=== PATIENT | male | born 1960 | race Caucasian/White ===

== ENCOUNTER → 2023-10-21 07:31 | Outpatient (REF) | payer MEDICARE, OTHER, SELFPAY | LOC: SDSPAT 07:31 | PROVIDERS: ATTENDING PHYSICIAN Surgery; FAMILY PHYSICIAN Nurse Practitioner | DX: K40.90 Unilateral inguinal hernia, without obstruction or gangrene, not specified as recurrent (principal) | CPT/HCPCS: 93005 ==

== ENCOUNTER 2023-10-28 06:28 | Day surgery (SDC) | payer MEDICARE, OTHER, SELFPAY ==
[2023-10-21 14:09] VITALS: BMI 25.6
[2023-10-28] VITALS (10 sets, daily range): BP systolic 112–131; BP diastolic 63–77; BMI 25.6
[2023-10-28] MEDS: TYLENOL 1000 MG PO (11:17)
[2023-10-28] MEDS: NORMOSOL-R 1000 IV (11:18)
--- NOTE | 2023-10-28 13:29 | W.SUR.PREOP ---
Pre-Operative Surgical Note
-
I have examined this patient prior to the performance of the scheduled procedure.
The patient's condition is unchanged from the time of the current History and
Physical and the patient is able to undergo the scheduled procedure.
--- NOTE | 2023-10-28 13:29 | W.IMMPOSTOP ---
Surgical Immed Post Op Note
-
Primary Surgeon: Rivera Fam MD
Assisting Surgeon: None
Pre-op Diagnosis: Incarcerated right scrotal inguinal hernia
Post-op Diagnosis: Same
Procedure Performed: Open right inguinal hernia repair with mesh
Anesthesia Type: General
Specimen / Cultures: Right inguinal nerves x 2
Estimated Blood Loss: 3 cc
Complications: None
Operative Findings: Large incarcerated right scrotal inguinal hernia containing omentum. High ligation and excision of the hernia sac. Small cord lipoma removed. No direct defect. Floor reinforced with a 3 x 6 inch Bard standard weight mesh.
--- NOTE | 2023-10-28 13:33 | OR.RPT ---
Operative Report
Operative Report
Patient Name: Demetrio Richardson
: 1960
Date of Operation: 10/28/2023
Preoperative Diagnosis: Incarcerated right scrotal inguinal hernia
Postoperative Diagnosis: Same
Procedure(s):
Open right incarcerated inguinal hernia repair with mesh
Surgeon(s):
Dr. Fam
Pull Over Machine Operator(s):
None
Anesthesia: General
Estimated Blood Loss: 3 cc
Urine Output: None
Drains/Lines/Implants: 3 x 6 inch Bard Flat Mesh cut to size
Specimens: None
Indication for surgery: The patient has a history of groin pain and some asymmetry noted on exam and was found to have a right Inguinal Hernia. Following review of therapeutic options they has elected to undergo an open repair
Operative Findings: Large incarcerated right scrotal inguinal hernia containing omentum. High ligation and excision of the hernia sac. Small cord lipoma removed. No direct defect. Floor reinforced with a 3 x 6 inch Bard standard weight mesh.
Details of the operation:
After induction of general anesthesia, the patient was clipped, prepped and draped in the supine position. A team timeout was performed confirming administration of DVT prophylaxis, IV antibiotics and SCDs. The ASIS and pubic tubercle was marked and
an incision was chosen along the course of a skin line. The skin was anesthestized with Lidocaine. A 7 cm incision was made through the skin line and dissection carried down through subcutaneous tissue and Susan's fascia. The superficial
epigastric vein was not identified. A Small Vadim wound retractor was used to provide exposure. The external oblique fibers were then divided in the direction of travel. The ilioinguinal and iliohypogastric nerves were identified and ligated as
they were lying right over the hernia and placement of the mesh. Dissection was carried down to the floor, which revealed the following:
At the site of the indirect (internal) ring, there was a very large hernia sac containing incarcerated omentum and bowel was identified. These were reduced without any injury to the underlying hernia contents. The sac was ligated near the internal
ring after it as dissected and reduced off the cord structures.
A cord lipoma was also identified and removed.
The direct space, floor of the canal revealed no weakness.
The floor of the canal was then reconstructed by placing a 6x3 in BARD flat polypropylene mesh trimmed to size and secured it in place with interrupted 0-PDS sutures medially at the pubic tubercle, inferiorly along the inguinal ligament,
laterally/superiorly in the conjoint tendon. A slit was made in the mesh just wide enough to accommodate the cord this was also reapproximated with the PDS suture. Care was taken not to injure or entrap any nerves. The external oblique fibers were
then closed using a running 2-0 Vicryl suture. Susan's fascia was then closed with interrupted 3-0 Vicryl suture. The skin was closed in layers with interrupted 3-0 vicryl deep dermals followed by a running subcuticular 4-0 Monocryl followed by
dermabond. The patient returned to the Recovery Room in stable condition. Sponge and instrument counts were correct. No specimens sent to Pathology.
I was the attending physician and performed the procedure with no assistance. I was present for all portions of the case
Rivera Fam MD
== END 2023-10-28 16:26 | disposition home or self-care (01) ==
LOC: SDS 06:28
PROVIDERS: ATTENDING PHYSICIAN Surgery
DX: K40.30 Unilateral inguinal hernia, with obstruction, without gangrene, not specified as recurrent (principal); D17.6 Benign lipomatous neoplasm of spermatic cord
CPT/HCPCS: 49507; 55520; 64772; 88304; C1781

== ENCOUNTER → 2024-06-17 12:31 | Outpatient (REF) | payer MEDICARE, OTHER, SELFPAY | LOC: PAVMRI 12:31 | PROVIDERS: ATTENDING PHYSICIAN Urology; FAMILY PHYSICIAN Nurse Practitioner | DX: R97.20 Elevated prostate specific antigen [PSA] (principal); N40.1 Benign prostatic hyperplasia with lower urinary tract symptoms | CPT/HCPCS: 72197; A9575 ==

== ENCOUNTER → 2024-06-21 09:37 | Outpatient (REF) | payer MEDICARE, OTHER, SELFPAY | LOC: CLAB 09:37 | PROVIDERS: ATTENDING PHYSICIAN Urology | DX: R97.20 Elevated prostate specific antigen [PSA] (principal) | CPT/HCPCS: 88305; 88344 ==